=== PATIENT | female | born 1990 | race American Indian/Alaskan Native ===

== ENCOUNTER 2016-11-24 13:02 | Emergency (ER) | payer SELFPAY ==
[2016-11-24 13:22] VITALS: BP 143/106
--- NOTE | 2016-11-25 15:21 | ED Elopement Review ---
ED Pt Elopement review - Call Back decision Pt Call Back Decision: No action required
== END 2016-11-24 14:20 | disposition left against medical advice (07) ==
LOC: ED 13:02
DX: R06.00 Dyspnea, unspecified (principal); R42 Dizziness and giddiness; Z53.21 Procedure and treatment not carried out due to patient leaving prior to being seen by health care provider
CPT/HCPCS: 93005; 93010

== ENCOUNTER 2017-06-01 00:44 | Emergency (ER) | payer SELFPAY ==
[2017-06-01 01:22] VITALS: BP 148/111
[2017-06-01 02:09] LABS: Basophils % (Auto) 0.8 % (0.0-1.8); Eosinophils % (Auto) 0.6 % (0.0-4.3); Hematocrit 36.6 % (30.3-42.9); Mean Corpuscular HGB Conc 33 % (30-34); Mean Corpuscular Hemoglobin 29 pg (28-32); Mean Corpuscular Volume 87 fl (79-97); Platelet Count 190 K/mm3 (140-440); Red Blood Count 4.22 M/mm3 (3.65-5.03); Red Cell Distribution Width 15.9 % (13.2-15.2); White Blood Count 4.5 K/mm3 (4.5-11.0)
[2017-06-01 02:18] LABS: INR 0.97 (0.87-1.13)
[2017-06-01 02:33] LABS: Alanine Aminotransferase 7 units/L (7-56); Albumin/Globulin Ratio 1.4 %; Alkaline Phosphatase 52 units/L (35-129); Anion Gap 17 mmol/L; BUN/Creatinine Ratio 16.25; Blood Urea Nitrogen 13 mg/dL (7-17); Calcium 8.7 mg/dL (8.4-10.2); Carbon Dioxide 25 mmol/L (22-30); Chloride 100.4 mmol/L (98-107); Glucose 92 mg/dL (65-100); Potassium 4.2 mmol/L (3.6-5.0); Sodium 138 mmol/L (137-145); Total Protein 6.8 g/dL (6.3-8.2)
== END 2017-06-01 04:45 | disposition left against medical advice (07) ==
LOC: ED 00:44
DX: R07.9 Chest pain, unspecified (principal); Z53.21 Procedure and treatment not carried out due to patient leaving prior to being seen by health care provider
CPT/HCPCS: 36415; 80053; 84484; 85025; 85610; 85730; 93005; 93010

== ENCOUNTER 2018-05-15 18:58 | Emergency (ER) | payer SELFPAY ==
[2018-05-15] MEDS ORDERED: MOTRIN PO ONE (21:33)
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
[2018-05-15 21:57] LABS: Basophils # (Auto) 0.1 K/mm3 (0.0-0.1); Basophils % (Auto) 0.9 % (0.0-1.8); Eosinophils # (Auto) 0.1 K/mm3 (0.0-0.4); Eosinophils % (Auto) 1.4 % (0.0-4.3); Hematocrit 43.4 % (30.3-42.9); Hemoglobin 14.7 gm/dl (10.1-14.3); Lymphocytes # (Auto) 2.3 K/mm3 (1.2-5.4); Mean Corpuscular HGB Conc 34 % (30-34); Mean Corpuscular Hemoglobin 31 pg (28-32); Mean Corpuscular Volume 91 fl (79-97); Monocytes # (Auto) 0.6 K/mm3 (0.0-0.8); Monocytes % (Auto) 9.5 % (0.0-7.3); Platelet Count 256 K/mm3 (140-440); Red Blood Count 4.77 M/mm3 (3.65-5.03); Red Cell Distribution Width 13.8 % (13.2-15.2)
[2018-05-15 22:15] LABS: Alanine Aminotransferase 10 units/L (7-56); Albumin 4.7 g/dL (3.9-5); BUN/Creatinine Ratio 16; Blood Urea Nitrogen 11 mg/dL (7-17); Calcium 9.7 mg/dL (8.4-10.2); Hemolysis Index 6
[2018-05-15 23:38] VITALS: BP 140/90
== END 2018-05-15 23:53 | disposition home or self-care (01) ==
LOC: ED 18:58
DX: R51 Headache (principal); R07.89 Other chest pain; M79.602 Pain in left arm; M79.604 Pain in right leg; R03.0 Elevated blood-pressure reading, without diagnosis of hypertension
CPT/HCPCS: 36415; 80053; 84484; 84703; 85025; 85379; 93005; 93010; 99283

== ENCOUNTER 2019-07-24 22:34 | Emergency (ER) | payer SELFPAY ==
[2019-07-24 22:42] VITALS: BP 148/88
[2019-07-25 01:07] LABS: Basophils % (Auto) 0.5 % (0.0-1.8); Eosinophils % (Auto) 0.7 % (0.0-4.3); Hematocrit 39.4 % (30.3-42.9); Hemoglobin 12.9 gm/dl (10.1-14.3); Lymphocytes % (Auto) 14.7 % (13.4-35.0); Mean Corpuscular HGB Conc 33 % (30-34); Mean Corpuscular Volume 92 fl (79-97); Monocytes # (Auto) 0.6 K/mm3 (0.0-0.8); Monocytes % (Auto) 8.3 % (0.0-7.3); Platelet Count 220 K/mm3 (140-440); Red Blood Count 4.29 M/mm3 (3.65-5.03); Red Cell Distribution Width 13.8 % (13.2-15.2)
[2019-07-25 01:31] LABS: Alanine Aminotransferase 15 units/L (7-56); Albumin 4.1 g/dL (3.9-5); BUN/Creatinine Ratio 15; Blood Urea Nitrogen 12 mg/dL (7-17); Calcium 9.5 mg/dL (8.4-10.2); Hemolysis Index 5
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
[2019-07-25 02:26] LABS: Bilirubin,Urine NEG (Negative); Blood,Urine NEG (Negative); Color,Urine Straw (Yellow); Protein,Urine <15 mg/dL mg/dL (Negative); Urobilinogen,Urine < 2.0 mg/dL (<2.0); WBC,Urine < 1.0 /HPF (0.0-6.0)
[2019-07-25 02:34] LABS: Amphetamine Screen,Urine PRESUMPTIVE NEGATIVE; Benzodiazepines Screen,Urine PRESUMPTIVE NEGATIVE; Cocaine Screen,Urine PRESUMPTIVE NEGATIVE; Methadone Screen,Urine PRESUMPTIVE NEGATIVE; Opiate Screen,Urine PRESUMPTIVE NEGATIVE
[2019-07-25 03:07] LABS: Cannabinoid Screen,Urine PRESUMPTIVE POSITIVE
== END 2019-07-25 03:10 | disposition home or self-care (01) ==
LOC: ED 22:34
DX: F41.9 Anxiety disorder, unspecified (principal); R20.2 Paresthesia of skin; F12.10 Cannabis abuse, uncomplicated; R00.2 Palpitations; Z79.899 Other long term (current) drug therapy
CPT/HCPCS: 36415; 80053; 80307; 80320; 81001; 83735; 84100; 84443; 84702; 85025; 93005; 93010; G0480

== ENCOUNTER 2019-08-25 12:57 | Emergency (ER) | payer OTHER ==
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
[2019-08-25] MEDS ORDERED: KETOROLAC 30 MG/1 ML INJ IM ONE (13:48)
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
[2019-08-25 15:56] VITALS: BP 135/98
== END 2019-08-25 15:49 | disposition home or self-care (01) ==
LOC: ED 12:57
DX: S86.912A Strain of unspecified muscle(s) and tendon(s) at lower leg level, left leg, initial encounter (principal); R51 Headache; M25.562 Pain in left knee; M79.622 Pain in left upper arm; I10 Essential (primary) hypertension; F41.9 Anxiety disorder, unspecified; F32.9 Major depressive disorder, single episode, unspecified; Z79.899 Other long term (current) drug therapy; V49.49XA Driver injured in collision with other motor vehicles in traffic accident, initial encounter; Y93.89 Activity, other specified; Y92.410 Unspecified street and highway as the place of occurrence of the external cause; Y99.8 Other external cause status
CPT/HCPCS: 96372; 99283; J1885

== ENCOUNTER 2022-03-10 19:04 | Emergency (ER) | payer OTHER ==
[2022-03-10] MEDS ORDERED: SODIUM CHLORIDE 0.9% 1000 ML 1,000 ML IV ONE (21:26)
[2022-03-10] MEDS ORDERED: ONDANSETRON 4 MG/2 ML INJ IV ONE ×2 (21:26→23:01)
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
[2022-03-10 22:17] LABS: Basophils % (Auto) 0.6 % (0.0-1.8); Eosinophils # (Auto) 0.1 K/mm3 (0.0-0.4); Eosinophils % (Auto) 1.4 % (0.0-4.3); Hematocrit 40.1 % (30.3-42.9); Hemoglobin 13.5 gm/dl (10.1-14.3); Lymphocytes % (Auto) 30.4 % (13.4-35.0); Mean Corpuscular HGB Conc 34 % (30-34); Mean Corpuscular Volume 87 fl (79-97); Monocytes # (Auto) 0.5 K/mm3 (0.0-0.8); Monocytes % (Auto) 7.8 % (0.0-7.3); Platelet Count 273 K/mm3 (140-440); Red Blood Count 4.59 M/mm3 (3.65-5.03); Red Cell Distribution Width 14.4 % (13.2-15.2)
[2022-03-10 22:40] LABS: Alanine Aminotransferase 36 units/L (7-56); Albumin 4.5 g/dL (3.9-5); BUN/Creatinine Ratio 14; Blood Urea Nitrogen 11 mg/dL (7-17); Calcium 9.9 mg/dL (8.4-10.2); Hemolysis Index 2
[2022-03-10] MEDS ORDERED: MORPHINE 4 MG/1 ML INJ IV ONE (23:01)
--- NOTE | 2022-03-11 00:29 | Ultrasound Report ---
US abdomen limited INDICATION / CLINICAL INFORMATION: RUQ Tenderness pos [place] sign. COMPARISON: No relevant prior imaging study available. FINDINGS: PANCREAS: No significant abnormality. ABDOMINAL AORTA: No significant abnormality. IVC: No significant abnormality. LIVER: No significant abnormality. PORTAL VEIN: Normal hepatopedal blood flow in the main portal vein. GALLBLADDER: No significant abnormality. BILE DUCTS: Common bile duct measures 3 mm. No significant abnormality. RIGHT KIDNEY: No significant abnormality visualized. FREE FLUID: None. ADDITIONAL FINDINGS: None. IMPRESSION: No significant sonographic abnormality of the right upper quadrant. Signer Name: Billy Peterson MD Signed: 03/11/2022 12:24 AM Workstation Name: [id number]
[2022-03-11 00:34] LABS: Bilirubin,Urine NEG (Negative); Blood,Urine NEG (Negative); Color,Urine Yellow (Yellow); HCG Qualitative,Urine Negative (Negative); Protein,Urine <15 mg/dL mg/dL (Negative); RBC,Urine < 1.0 /HPF (0.0-6.0); Urobilinogen,Urine < 2.0 mg/dL (<2.0)
[2022-03-11 02:28] VITALS: BP 127/72
== END 2022-03-11 02:29 | disposition home or self-care (01) ==
LOC: ED 19:04
DX: R10.33 Periumbilical pain (principal); R10.11 Right upper quadrant pain; I10 Essential (primary) hypertension; F41.9 Anxiety disorder, unspecified; F32.9 Major depressive disorder, single episode, unspecified
CPT/HCPCS: 36415; 76705; 80053; 81001; 81025; 83690; 85025; 96361; 96374; 96375; 96376; 99284; J2270; J2405; J7030